=== PATIENT | female | born 1995 | race Caucasian/White ===

== ENCOUNTER 2017-06-25 08:25 | Emergency (ER) | payer MEDICAID ==
[~2017-06-25] VITALS: Ht 165.1 cm; Wt 54.4 kg
[~2017-06-25 08:25] MED LIST: CEPH500C PO; CONCERTA; CYCL5TAB11 PO; HYDR-3812 PO; HYDR25CA5 PO; IBUP-1773 PO; LORAZEPAM; ONDAN4ODT PO
[2017-06-25] MEDS ORDERED: TETRACAINE 0.5% OPHTH SOLN 4 ML BTL (SINGLE DOSE ONLY) ONE (08:28)
[2017-06-25] MEDS ORDERED: BSS 15 ML ONE (08:29)
--- OUTSIDE RECORDS SUMMARY | 2017-06-25 08:30 | XMS REPORT ---
Author NAYA Bautista eClinicalWorks Address Unknown Phone Unavailable Care Team Providers Care Contact Printer Dry Film Name Role Phone NAYA LYMAN CP Unavailable Allergies, Adverse Reactions, Alerts Substance Reaction Event Type Morphine Info Not Available Drug Allergy Problems Problem Type Condition Code Onset Dates Condition Status Assessment Encounter for Depo-Provera contraception Z30.42 Active Assessment Encounter for initial prescription of injectable contraceptive Z30.013 Active Medications Medication Code System Code Instructions Start Date End Date Status Dosage Ortho Micronor [facility] [address]-84 0.35 MG Orally Once a day Aug 23, 2015 1 tablet Procedures Procedure Coding System Code Date Office Visit, Est Pt., Level 3 CPT-4 88319 Nov 16, 2015 DEPO PROVERA (150 MG/ML) CPT-4 J1050 Nov 16, 2015 URINE TEST CPT-4 65218 Nov 16, 2015 THER/PROPH/DIAG INJ, SC/IM CPT-4 19556 Nov 16, 2015 Vital Signs Date/Time: Nov 16, 2015 Temperature 97.6 F Weight 132.3 lbs Height 65 in BMI 22.01 Index Blood Pressure Diastolic 60 mmHg Blood Pressure Systolic 94 mmHg Cardiac Monitoring Heart Rate 88 bpm Results Name Result Date Reference Range Unit Abnormality Flag TEST, URINE (IN HOUSE) ----RESULTS Negative [id number] ----Lot # [id number] ----Control + [id number] ----Exp date [id number] Summary Purpose eClinicalWorks Submission
--- OUTSIDE RECORDS SUMMARY | 2017-06-25 08:30 | XMS REPORT ---
Author ZAYDA Lopez Organization e[employer]Works Address Unknown Phone Unavailable Care Team Providers Care Internet Marketing Specialist Name Role Phone ZAYDA RANDALL CP Unavailable Allergies No Known Allergies Problems No Known Problems Medications No Known Medications Results No Known Results Summary Purpose eClinicalWorks Submission
--- OUTSIDE RECORDS SUMMARY | 2017-06-25 08:31 | XMS REPORT ---
Author Author NAYA LYMAN Organization e[employer] Address Unknown Phone Unavailable Care Team Providers Care Geometry Tutor Name Role Phone NAYA LYMAN CP Unavailable Allergies No Known Allergies Problems Problem Type Condition ICD-9 Code Onset Dates Condition Status Problem Ghdns-jjo-upznw fetus, second trimester 656.53 Active Problem IUGR (intrauterine growth restriction) affecting care of mother 656.50 Active Problem Choroid plexus cysts, , affecting care of mother, antepartum 655.03 Active Problem Supervision of other normal V22.1 Active Problem Insomnia, unspecified 780.52 Active Problem examination or test, positive result V72.42 Active Medications No Known Medications Results No Known Results Summary Purpose eClinicalWorks Submission
--- OUTSIDE RECORDS SUMMARY | 2017-06-25 08:31 | XMS REPORT ---
Author Author MAITE BROWNE Organization eClinical[employer] Address Unknown Phone Unavailable Care Team Providers Care Center Lead Consultant Name Role Phone MAITE BROWNE CP Unavailable Allergies, Adverse Reactions, Alerts Substance Reaction Event Type Morphine Info Not Available Drug Allergy Problems Problem Type Condition Code Onset Dates Condition Status Problem Encounter for screening for malignant neoplasm of cervix Z12.4 Active Problem Screening for STDs (sexually transmitted diseases) Z11.3 Active Problem Encounter for well woman exam with routine gynecological exam Z01.419 Active Assessment Screening for STDs (sexually transmitted diseases) Z11.3 Active Assessment Encounter for well woman exam with routine gynecological exam Z01.419 Active Assessment Encounter for screening for malignant neoplasm of cervix Z12.4 Active Medications Medication Code System Code Instructions Start Date End Date Status Dosage Sprintec 28 [facility] [address]-88 0.25-35 MG-MCG Orally Once a day April 13, 2016 1 tablet Procedures Procedure Coding System Code Date [facility] C[facility]-4 NOBLL Jun 22, 2016 FLORES VAG, DNA, DIR PROBE CPT-4 83557 Jun 22, 2016 SPECIMEN HANDLING CPT-4 23752 Jun 22, 2016 Preventive Care New Pt. Age 18-39 CPT-4 31542 Jun 22, 2016 No Charge CPT-4 27708 Jun 22, 2016 Vital Signs Date/Time: Jun 22, 2016 Cardiac Monitoring Heart Rate 76 bpm Weight 127.7 lbs Height 65 in BMI 21.25 Index Blood Pressure Diastolic 74 mmHg Blood Pressure Systolic 116 mmHg Results No Known Results Summary Purpose eClinicalWorks Submission
--- OUTSIDE RECORDS SUMMARY | 2017-06-25 08:31 | XMS REPORT ---
Author Author NAYA LYMAN Organization e[employer] Address Unknown Phone Unavailable Care Team Providers Care Hydrographic Engineer Name Role Phone NAYA LYMAN CP Unavailable Allergies No Known Allergies Problems Problem Type Condition ICD-9 Code Onset Dates Condition Status Problem Qozzh-zrb-heyxu fetus, second trimester 656.53 Active Problem IUGR [...]
--- OUTSIDE RECORDS SUMMARY | 2017-06-25 08:31 | XMS REPORT ---
Author ZAYDA Lopez Organization eClinicalWorks Address Unknown Phone Unavailable Care Team Providers Care Cover Machine Operator Name Role Phone ZAYDA RANDALL CP Unavailable Allergies No Known Allergies Problems No Known Problems Medications No Known Medications Results No Known Results Summary Purpose eClinicalWorks Submission
--- OUTSIDE RECORDS SUMMARY | 2017-06-25 08:31 | XMS REPORT ---
Author Author MAITE BROWNE Organization [facility] [place] Address [address] [place] [address] Care Team Providers Care Heading Repairer Name Role Phone BROWNEMAITE Sesay Unavailable PROBLEMS Type Condition ICD9-CM Code [id number] Code Onset Dates Condition Status SNOMED Code Problem Screening for STDs (sexually transmitted diseases) Z11.3 Active 055962257 Problem Encounter for well woman exam with routine gynecological exam Z01.419 Active 178708363 Problem Encounter for screening for malignant neoplasm of cervix Z12.4 Active 600018962 Assessment Tobacco abuse Z72.0 Sep, Active 912665972 Problem Anxiety disorder, unspecified F41.9 Active 491791030 Problem Major depressive disorder, single episode, unspecified F32.9 Active 64924665 Problem Tobacco abuse counseling Z71.6 Active 201077929 Problem Oral contraceptive pill surveillance Z30.41 Active 840213748 Problem Attention deficit hyperactivity disorder (ADHD), combined type F90.2 Active 27722901 Problem Tobacco abuse Z72.0 Active 699922238 ALLERGIES Substance Reaction Event Type Date Status Morphine Unknown Drug Allergy Sep, Active SOCIAL HISTORY No smoking Hx information available PLAN OF CARE VITAL SIGNS Height 65 in 2016-09-27 Weight 126 lbs 2016-09-27 Heart Rate 78 bpm 2016-09-27 Respiratory Rate 20 2016-09-27 BMI 20.97 kg/m2 2016-09-27 Blood pressure systolic 112 mmHg 2016-09-27 Blood pressure diastolic 66 mmHg 2016-09-27 MEDICATIONS Medication Instructions Dosage Frequency Start Date End Date Duration Status Sprintec 28 0.25-35 MG-MCG Orally Once a day 1 tablet 24h Apr, 28 day(s) Active Pristiq 50 MG Orally Once a day 1 tablet 24h Active BuSpar 15 MG Orally Twice a day PRN 1 tablet Jul, Active Chantix 1 MG Orally Twice a day take one half tablet day 1-3, then take one tablet daily day 4-7 then one tablet twice daily 12h Sep, Oct, 30 day(s) Active RESULTS No Results PROCEDURES Procedure Date Ordered Related Diagnosis Body Site Office Visit, Est Pt., Level 3 Sep 27, 2016 IMMUNIZATIONS No Known Immunizations
--- OUTSIDE RECORDS SUMMARY | 2017-06-25 08:31 | XMS REPORT ---
Author Author NAYA LYMAN Organization eClinicalWorks Address Unknown Phone Unavailable Care Team Providers Care Automation Control Technician Name Role Phone NAYA LYMAN CP Unavailable Allergies No Known Allergies Problems Problem Type Condition ICD-9 Code Onset Dates Condition Status Assessment IUGR (intrauterine growth restriction) affecting care of mother 656.50 Active Problem Idczy-rre-gzbxa fetus, second trimester 656.53 Active Problem IUGR (intrauterine growth restriction) affecting care of mother 656.50 Active Problem Choroid plexus cysts, , affecting care of mother, antepartum 655.03 Active Problem Supervision of other normal V22.1 Active Assessment Supervision of other normal V22.1 Active Problem Insomnia, unspecified 780.52 Active Problem examination or test, positive result V72.42 Active Medications No Known Medications Procedures Procedure Coding System Code Date Office Visit, Est Pt., Level 2 CPT-4 62875 Jul 07, 2015 NON-STRESS TEST CPT-4 54991 Jul 07, 2015 URINE-NO MICRO CPT-4 56998 Jul 07, 2015 Vital Signs Date/Time: Jul 07, 2015 Temperature 98.0 F Weight 150.4 lbs Height 65 in BMI 25.028 Index Blood Pressure Diastolic 68 mmHg Blood Pressure Systolic 110 mmHg Results Name Result Date Reference Range Unit Abnormality Flag UA OB DIP (IN HOUSE) Summary Purpose eClinicalWorks Submission
--- OUTSIDE RECORDS SUMMARY | 2017-06-25 08:31 | XMS REPORT ---
Author JOSTIN Perry Organization eClinicalWorks Address Unknown Phone Unavailable Care Team Providers Care Sap Technical Developer Name Role Phone JOSTIN QUIROGA CP Unavailable Allergies No Known Allergies Problems Problem Type Condition Code Onset Dates Condition Status Problem Iotvq-obj-jiirn fetus, second trimester 656.53 Active Problem IUGR [...]
--- OUTSIDE RECORDS SUMMARY | 2017-06-25 08:31 | XMS REPORT ---
Author Author NAYA LYMAN [facility] eClinicalWorks Address Unknown Phone Unavailable Care Team Providers Care Metal Bending Machine Operator Name Role Phone NAYA LYMAN CP Unavailable Allergies No Known Allergies Problems No Known Problems Medications No Known Medications Results No Known Results Summary Purpose eClinicalWorks Submission
--- OUTSIDE RECORDS SUMMARY | 2017-06-25 08:31 | XMS REPORT ---
Author Author NAYA LYMAN Organization eClinicalWorks Address Unknown Phone Unavailable Care Team Providers Care Metal Sheet Roller Operator Name Role Phone NAYA LYMAN CP Unavailable Allergies No Known Allergies Problems Problem Type Condition ICD-9 Code Onset Dates Condition Status Problem Bafjy-uwb-icywe fetus, second trimester 656.53 Active Problem IUGR [...]
--- OUTSIDE RECORDS SUMMARY | 2017-06-25 08:31 | XMS REPORT ---
Author Author NAYA LYMAN Organization eClinicalWorks Address Unknown Phone Unavailable Care Team Providers Care Floor Sanding Machine Operator Name Role Phone NAYA LYMAN CP Unavailable Allergies No Known Allergies Problems Problem Type Condition ICD-9 Code Onset Dates Condition Status Problem Lnhks-cga-myamo fetus, second trimester 656.53 Active Problem IUGR [...]
--- OUTSIDE RECORDS SUMMARY | 2017-06-25 08:31 | XMS REPORT ---
Author Author NAYA LYMAN Organization eClinicalWorks Address Unknown Phone Unavailable Care Team Providers Care Tow Motor Operator Name Role Phone NAYA LYMAN CP Unavailable Allergies No Known Allergies Problems Problem Type Condition ICD-9 Code Onset Dates Condition Status Problem Dmdgb-lrs-ioqep fetus, second trimester 656.53 Active Problem IUGR [...]
--- OUTSIDE RECORDS SUMMARY | 2017-06-25 08:31 | XMS REPORT ---
Author Author NAYA LYMAN [facility] eClinicalWorks Address Unknown Phone Unavailable Care Team Providers Care Thiokol Operator Name Role Phone NAYA LYMAN CP Unavailable Allergies No Known Allergies Problems No Known Problems Medications No Known Medications Results No Known Results Summary Purpose eClinicalWorks Submission
--- OUTSIDE RECORDS SUMMARY | 2017-06-25 08:31 | XMS REPORT ---
Author Author NAYA LYMAN Organization eClinicalWorks Address Unknown Phone Unavailable Care Team Providers Care Die Sinking Machine Operator Name Role Phone NAYA LYMAN CP Unavailable Allergies No Known Allergies Problems Problem Type Condition ICD-9 Code Onset Dates Condition Status Problem Wvybq-ayd-gpaal fetus, second trimester 656.53 Active Problem IUGR [...]
--- OUTSIDE RECORDS SUMMARY | 2017-06-25 08:31 | XMS REPORT ---
Author Author NAYA LYMAN Organization eClinicalWorks Address Unknown Phone Unavailable Care Team Providers Care Hob Machine Operator Name Role Phone NAYA LYMAN CP Unavailable Allergies No Known Allergies Problems Problem Type Condition ICD-9 Code Onset Dates Condition Status Assessment IUGR (intrauterine growth restriction) affecting care of mother 656.50 Active Problem Nnwip-rkq-giuwq fetus, second trimester 656.53 Active Problem IUGR [...] Medications Procedures Procedure Coding System Code Date NON-STRESS TEST CPT-4 97895 Jun 30, 2015 Office Visit, Est Pt., Level 2 CPT-4 45637 Jun 30, 2015 URINE-NO MICRO CPT-4 06795 Jun 30, 2015 Vital Signs Date/Time: Jun 30, 2015 Temperature 97.1 F Weight 147.1 lbs Height 65 in BMI 24.479 Index Blood Pressure Diastolic 78 mmHg Blood Pressure Systolic 112 mmHg Cardiac Monitoring Heart Rate 82 bpm Results Name Result Date Reference Range Unit Abnormality Flag UA OB DIP (IN HOUSE) NON-STRESS TEST Summary Purpose eClinicalWorks Submission
[2017-06-25] MEDS ORDERED: NS IV 1000 ML 1,000 ML ONE (08:32)
--- OUTSIDE RECORDS SUMMARY | 2017-06-25 08:32 | XMS REPORT ---
Author Author MAITE BROWNE Organization eClinicalWorks Address Unknown Phone Unavailable Care Team Providers Care Prosthetist Name Role Phone MAITE BROWNE CP Unavailable Allergies, Adverse Reactions, Alerts Substance Reaction Event Type Morphine Info Not Available Drug Allergy Problems Problem Type Condition Code Onset Dates Condition Status Problem Encounter for screening for malignant neoplasm of cervix Z12.4 Active Problem Screening for STDs (sexually transmitted diseases) Z11.3 Active Problem Encounter for well woman exam with routine gynecological exam Z01.419 Active Assessment Routine health maintenance Z00.00 Active Assessment Anxiety F41.9 Active Medications Medication Code System Code Instructions Start Date End Date Status Dosage BuPROPion HCl (SR) [facility] [address]-02 100 MG Orally Once a day 1 tablet Sertraline HCl [facility] [address]-70 100 MG Orally Once a day 1 tablet BuSpar NDC 0 15 MG Orally Twice a day PRN Aug 09, 2016 1 tablet Sprintec 28 [facility] [address]-07 0.25-35 MG-MCG Orally Once a day April 13, 2016 1 tablet Procedures Procedure Coding System Code Date [facility] CPT-4 NOBLL Aug 09, 2016 Office Visit, Est Pt., Level 3 CPT-4 50247 Aug 09, 2016 GLYCATED HEMOGLOBIN TEST CPT-4 48514 Aug 09, 2016 VENIPAMARA, ROUTINE* CPT-4 01326 Aug 09, 2016 Vital Signs Date/Time: Aug 09, 2016 Cardiac Monitoring Heart Rate 80 bpm Weight 124.2 lbs Height 65 in BMI 20.67 Index Blood Pressure Diastolic 62 mmHg Blood Pressure Systolic 104 mmHg Results Name Result Date Reference Range Unit Abnormality Flag A1C ----Hemoglobin A1c 5.4 [id number] 4.8-5.6 % CBC ----Basos 0 07210075 % ----MCV 88 12839286 79-97 fL ----Hematocrit 41.8 55315224 34.0-46.6 % ----Eos 2 40381196 % ----MCHC 34.4 47576062 31.5-35.7 g/dL ----Monocytes 7 31760822 % ----MCH 30.2 08202499 26.6-33.0 pg ----Lymphs 32 78097271 % ----Eos (Absolute) 0.1 [id number] 0.0-0.4 x10E3/uL ----WBC 7.0 [id number] 3.4-10.8 x10E3/uL ----Monocytes(Absolute) 0.5 [id number] 0.1-0.9 x10E3/uL ----Lymphs (Absolute) 2.2 19452622 0.7-3.1 x10E3/uL ----Hemoglobin 14.4 60360765 11.1-15.9 g/dL ----Neutrophils (Absolute) 4.1 24443419 1.4-7.0 x10E3/uL ----RBC 4.77 [id number] 3.77-5.28 x10E6/uL ----Immature Grans (Abs) 0.0 10791836 0.0-0.1 x10E3/uL ----Immature Granulocytes 0 06008080 % ----Neutrophils 59 07542946 % ----Baso (Absolute) 0.0 [id number] 0.0-0.2 x10E3/uL ----RDW 12.7 79867018 12.3-15.4 % ----Platelets 304 28686102 150-379 x10E3/uL ROUTINE VENIPUNCTURE THYROID ANALYZER ----TSH 1.450 [id number] 0.450-4.500 uIU/mL LIPID PANEL ----LDL Cholesterol Calc 139 82196169 0-99 mg/dL H ----VLDL Cholesterol Hung 28 70078337 5-40 mg/dL ----HDL Cholesterol 48 81879155 >39 mg/dL ----Triglycerides 138 76900521 0-149 mg/dL ----Cholesterol, Total 215 64121154 100-199 mg/dL H CMP ----Creatinine, Serum 0.68 63087751 0.57-1.00 mg/dL ----BUN 7 20075620 6-20 mg/dL ----eGFR If Africn Am 145 33794109 >59 mL/min/1.73 ----eGFR If NonAfricn Am 125 71111860 >59 mL/min/1.73 ----Sodium, Serum 141 69692948 134-144 mmol/L ----BUN/Creatinine Ratio 10 20160809 8-20 ----Chloride, Serum 101 19890640 97-108 mmol/L ----Potassium, Serum 4.6 99063808 3.5-5.2 mmol/L ----Carbon Dioxide, Total 23 78421886 18-29 mmol/L ----Protein, Total, Serum 8.0 38244203 6.0-8.5 g/dL ----Calcium, Serum 10.2 91682935 8.7-10.2 mg/dL ----Globulin, Total 3.1 66143320 1.5-4.5 g/dL ----Albumin, Serum 4.9 88603755 3.5-5.5 g/dL ----Bilirubin, Total 0.3 15008554 0.0-1.2 mg/dL ----Glucose, Serum 71 26977951 65-99 mg/dL ----A/G Ratio 1.6 65529393 1.1-2.5 ----ALT (SGPT) 19 20160809 0-32 IU/L ----Alkaline Phosphatase, S 77 08867681 39-117 IU/L ----AST (SGOT) 20 [id number] 0-40 IU/L Summary Purpose eClinicalWorks Submission
--- OUTSIDE RECORDS SUMMARY | 2017-06-25 08:32 | XMS REPORT ---
Author Author NAYA LYMAN [facility] eClinicalWorks Address Unknown Phone Unavailable Care Team Providers Care Staff Nurse Midwife Name Role Phone NAYA LYMAN Unavailable Allergies No Known Allergies Problems Problem Type Condition Code Onset Dates Condition Status Assessment Routine follow-up Z39.2 Active Medications Medication Code System Code Instructions Start Date End Date Status Dosage Ortho Micronor [facility] [address]-58 0.35 MG Orally Once a day Aug 23, 2015 1 tablet Procedures Procedure Coding System Code Date Office Visit, Est Pt., Level 3 CPT-4 10592 Aug 23, 2015 Vital Signs Date/Time: Aug 23, 2015 Temperature 97.9 F Weight 133.3 lbs Height 65 in BMI 22.18 Index Blood Pressure Diastolic 62 mmHg Blood Pressure Systolic 110 mmHg Cardiac Monitoring Heart Rate 96 bpm Results No Known Results Summary Purpose eClinicalWorks Submission
[2017-06-25] MEDS ORDERED: TETRACAINE 0.5% OPHTH SOLN 4 ML BTL (SINGLE DOSE ONLY) OP ONE (08:45)
[2017-06-25] MEDS ORDERED: FLUORESCEIN (FLUOR-I-STRIPS) 1 MG STRP OU ONE (08:45)
--- NOTE | 2017-06-25 08:48 | ED EENT ---
History of Present Illness General Stated Complaint: CLEANING CHEMICALS IN HER EYES Source: patient Exam Limitations: no limitations History of Present Illness Time seen by provider: 08:25 Initial Comments Here with significant left thigh pain after getting longer soap in her left eye just prior to arrival this morning. She tried to flush it out quickly but it did not help. She had a contact and she quickly remove that and then continue the flushing. Pain was quite severe so she came to the ER. She states that it hurts mostly on the top and she cannot get the soap out. Denies other injury. Tetanus is up-to-date. Timing/Duration: abrupt Severity: moderate, severe Location: eye (L) Prearrival Treatment: flushing eyes Associated Symptoms: No facial pain/swelling, No fever Allergies and Home Medications Allergies Coded Allergies: morphine (Verified Allergy, Mild, SOA, 04/22/12) Home Medications Varenicline Tartrate 1 Mg Tablet, 1 MG PO DAILY, (Reported) Review of Systems Constitutional: see HPI, No chills, No fever Eyes: See HPI, Inflammation, Pain Respiratory: no symptoms reported Cardiovascular: no symptoms reported Skin: no symptoms reported Past Kelzjys-Wuqomn-Ucqkqe Hx Patient Social History Alcohol Use: Occasionally Uses Recreational Drug Use: No Smoking Status: Former Smoker Former Smoker/When Quit: Feb 09, 2015 Immunizations Up To Date Tetanus Booster (TDap): Less than 5yrs PED Vaccines UTD: Yes Surgeries HX Surgeries: Yes (wisdom teeth ) Surgeries: Tonsillectomy Respiratory Hx Respiratory Disorders: No Cardiovascular Hx Cardiac Disorders: No Neurological Hx Neurological Disorders: No Reproductive System Hx Reproductive Disorders: No Sexually Transmitted Disease: No HIV/AIDS: No Genitourinary Hx Genitourinary Disorders: No Gastrointestinal Hx Gastrointestinal Disorders: No Musculoskeletal Hx Musculoskeletal Disorders: No Endocrine Hx Endocrine Disorders: No HEENT HX ENT Disorders: No Cancer Hx Cancer: No Psychosocial Hx Psychiatric Problems: No Integumentary HX Skin/Integumentary Disorder: No Blood Transfusions Hx Blood Disorders: No Adverse Reaction to a Blood Tr: No Reviewed Nursing Assessment Reviewed/Agree w Nursing PMH: Yes Family Medical History Significant Family History: No Pertinent Family Hx Family Medial History: Chrons Diabetes mellitus 19 FATHER FH: Crohn's disease G8 BROTHER Hypertension 19 FATHER Psychosocial problem 19 FATHER (schizophrenia ) 19 MOTHER (manic depressive ) Physical Exam Vital Signs Vital Sign - Last 12Hours 06/25/17 08:45 Temp 97.0 Pulse 81 Resp 20 B/P (MAP) 120/75 Pulse Ox 99 O2 Delivery Room Air General Appearance: WD/WN, no apparent distress Eyes: right eye normal inspection, left eye conjunctival inflammation, left eye other (ocular evaluation after lidocaine and fluorescein shows no corneal abrasions.), bilateral eye PERRL Cardiovascular: regular rate, rhythm, no murmur Respiratory: lungs clear, normal breath sounds Gastrointestinal: non tender, soft Neurologic/Psychiatric: alert, oriented x 3 Skin: normal color, warm/dry Progress/Results/Core Measures Results/Orders My Orders Orders - ALEE ALMONTE MD Fluorescein Strips (Cyarz-X-Ssrspl) (06/25/17 08:45) Tetracaine 0.5% Ophth Randi Sdv (Tetracai (06/25/17 08:45) Tetracaine 0.5% Ophth Randi Sdv (Tetracai (06/25/17 08:28) Balanced Salt Irrigation Soln (Bss Irrig (06/25/17 08:29) Ns Iv 1000 Ml (Sodium Chloride 0.9%) (06/25/17 08:32) Medications Given in ED Current Medications Medications Dose Ordered Sig/Sunil Route Start Time Stop Time Status Last Admin Dose Admin Fluorescein Sodium 1 mg ONCE ONCE OU 06/25/17 08:45 06/25/17 08:46 DC 06/25/17 08:59 1 MG Sodium Chloride 1,000 ml @ ud STK-MED ONCE .ROUTE 06/25/17 08:32 06/25/17 08:39 DC 06/25/17 08:55 1,000 MLS/HR Tetracaine HCl 1 OR 2 DROPS INTO AFFEC... ONCE ONCE OP 06/25/17 08:45 06/25/17 08:46 DC 06/25/17 08:59 4 ML Vital Signs/I&O Vital Sign - Last 12Hours 06/25/17 08:45 Temp 97.0 Pulse 81 Resp 20 B/P (MAP) 120/75 Pulse Ox 99 O2 Delivery Room Air Progress Note : Progress Note Seen and evaluated. Initiated flushing of the left eye with normal saline on arrival. This greatly reduced her pain and symptoms. Fluorescein staining after tetracaine drops shows no abrasions on [place] lamp exam. We will flush left with 1 L normal saline via Wesly lens. After 500 mL, patient was feeling much better and would like to discontinue last. This is reasonable as she is very had 250 mL via bottle and 500 mL via Wesly lens for flushing of the eye. Improved afterwards. Discharged home with return precautions. Patient verbalize understanding instructions and agreement with plan. Departure Impression Impression: Primary Impression: Chemical conjunctivitis of left eye Disposition: 01 HOME, SELF-CARE Condition: Improved Departure-Patient Inst. Decision time for Depature: 08:46 Referrals: NAYA LYMAN MD (PCP) Primary Care Physician [facility] (Family) Primary Care Physician JASON DUMONT OD Patient Instructions: Chemical Eye Injury (DC) Add. Discharge Instructions: Follow-up with your eye doctor in the next 24 hours or follow up with Dr. Dumont [facility] for recheck and further evaluation. Return for worse pain, fever, vision problems or other concerns as needed. Do not use contact in that eye for the next few days. ALEE ALMONTE MD Jun 25, 2017 08:48
[2017-06-25] MEDS ORDERED: VARE1TAB22 PO (08:54)
[2017-06-25 09:39] VITALS: BP 120/75
== END 2017-06-25 09:39 | disposition home or self-care (01) ==
LOC: EDUNIT# 08:25 → ER 08:27
DX: H10.212 Acute toxic conjunctivitis, left eye (principal); Z87.891 Personal history of nicotine dependence
CPT/HCPCS: 96360; 99283

== ENCOUNTER 2018-10-08 09:27 | Emergency (ER) | payer MEDICAID ==
[~2018-10-08] VITALS: Ht 165.1 cm; Wt 54.4 kg
[~2018-10-08 09:27] MED LIST changes: +ACHD5005 PO; -HYDR-3812 PO; +VARE1TAB22 PO
[2018-10-08] MEDS ORDERED: LACTATED RINGERS 1,000 ML IV ONE (09:38)
[2018-10-08] MEDS ORDERED: diphenhydrAMINE 25 MG TAB (BENADRYL) PO ONE (09:45)
[2018-10-08] MEDS ORDERED: ONDANSETRON 4 MG/2 ML (SDV) Z0FRAN IVP ONE (09:45)
[2018-10-08] MEDS ORDERED: KETOROLAC 30 MG/ML VIAL IVP ONE (09:45)
[2018-10-08] MEDS ORDERED: DEXAMETHASONE 4 MG/ML SDV (DECADRON) IV ONE (09:45)
[2018-10-08] MEDS ORDERED: PROCHLORPERAZINE 10 MG/2ML INJ (COMPAZINE) IV ONE (09:45)
[2018-10-08] MEDS ORDERED: ACETAMINOPHEN 500 MG TAB (TYLENOL) PO ONE (09:45)
--- NOTE | 2018-10-08 09:46 | ED Headache ---
General Stated Complaint: N/V;MIGRAINE Source: patient, other Exam Limitations: no limitations History of Present Illness Date Seen by Provider: Oct 08, 2018 Time Seen by Provider: 09:35 Initial Comments Patient presents to ER by private conveyance with chief complaint she's had a headache nausea vomiting since about 7:00 this morning. She has a history of migraine headache similar to this she's not had one in 3 years. She does not take anything to prevent them or to abort them. She does not take any medicines nor have any significant medical problems. Last menstrual period was 6 days ago. She describes it as a global ring around her head stabbing sensation with nausea vomiting of bilious contents. No diarrhea. The only thing different is recently she started an antibiotic for UTI. Allergies and Home Medications Allergies Coded Allergies: morphine (Verified Allergy, Mild, SOA, 04/22/12) Home Medications Varenicline Tartrate 1 Mg Tablet, 1 MG PO DAILY, (Reported) Patient Home Medication List Home Medication List Reviewed: Yes Review of Systems Review of Systems Constitutional: No chills, No diaphoresis, No fever Eyes: Denies Blindness, Denies Blurred Vision; Photophobia Ears, Nose, Mouth, Throat: denies ear pain, denies ear discharge Respiratory: No cough, No short of breath Cardiovascular: No chest pain, No edema Gastrointestinal: No abdominal pain, No constipation, No diarrhea; nausea, vomiting Genitourinary: No discharge, No dysuria : No LMP: Oct 02, 2018 Musculoskeletal: No back pain, No joint pain Past Veiruaz-Jllsne-Houpax Hx Patient Social History Alcohol Use: Denies Use Alcohol Beverage of Choice: Cheap Liquor Recreational Drug Use: No Smoking Status: Former Smoker Type Used: Cigarettes Former Smoker, Quit: Jun 18, 2017 Recent Hopitalizations: No Immunizations Up To Date Tetanus Booster (TDap): Less than 5yrs PED Vaccines UTD: Yes Seasonal Allergies Seasonal Allergies: Yes Past Medical History Surgeries: Yes (wisdom teeth ) Tonsillectomy Respiratory: No Cardiac: No Neurological: No Reproductive Disorders: No Sexually Transmitted Disease: No HIV/AIDS: No Genitourinary: No Gastrointestinal: No Musculoskeletal: No Endocrine: No Cancer: No Psychosocial: No Integumentary: No Blood Disorders: No Adverse Reaction/Blood Tranf: No Family Medical History Chrons Diabetes mellitus 19 FATHER FH: Crohn's disease G8 BROTHER Hypertension 19 FATHER Psychosocial problem 19 FATHER (schizophrenia ) 19 MOTHER (manic depressive ) No Pertinent Family Hx Physical Exam Vital Signs Vital Signs - First Documented 10/08/18 09:32 Temp 96.1 Pulse 93 Resp 18 B/P (MAP) 117/78 (91) Pulse Ox 100 O2 Delivery Room Air Capillary Refill : Height, Weight, BMI Height: 5'5.00" Weight: 120lbs. oz. 54.127123wi; 25.62 BMI Method:Stated General Appearance: WD/WN, moderate distress HEENT: normal ENT inspection, pharynx normal Neck: non-tender, full range of motion Cardiovascular: normal peripheral pulses, regular rate, rhythm Respiratory: no respiratory distress, no accessory muscle use Gastrointestinal: normal bowel sounds, non tender Psychiatric: alert, oriented x 3 Crainal Nerves: normal hearing, normal speech, PERRL Coordination/Gait: normal gait Motor/Sensory: no motor deficit, no sensory deficit Skin: normal color, warm/dry Progress/Results/Core Measures Results/Orders My Orders Orders - DEYA MERCADO Saline Lock/Iv-Start (10/08/18 09:38) Lactated Ringers (Lr 1000 Ml Iv Solution (10/08/18 09:38) Ketorolac Injection (Toradol Injection) (10/08/18 09:45) Ondansetron Injection (Zofran Injectio (10/08/18 09:45) Prochlorperazine Injection (Compazine In (10/08/18 09:45) Dexamethasone Injection (Decadron Inject (10/08/18 09:45) Diphenhydramine Tablet (Benadryl Tablet) (10/08/18 09:45) Acetaminophen Tablet (Tylenol Tablet) (10/08/18 09:45) Medications Given in ED Current Medications Medications Dose Ordered Sig/Sunil Route Start Time Stop Time Status Last Admin Dose Admin Dexamethasone Sodium Phosphate 4 mg ONCE ONCE IV 10/08/18 09:45 10/08/18 09:46 DC 10/08/18 09:54 4 MG Ketorolac Tromethamine 30 mg ONCE ONCE IVP 10/08/18 09:45 10/08/18 09:46 DC 10/08/18 09:53 30 MG Lactated Ringer's 1,000 ml @ 0 mls/hr Q0M ONCE IV 10/08/18 09:38 10/08/18 09:40 DC 10/08/18 09:50 1,000 MLS/HR Ondansetron HCl 4 mg ONCE ONCE IVP 10/08/18 09:45 10/08/18 09:46 DC 10/08/18 09:52 4 MG Prochlorperazine Edisylate 10 mg ONCE ONCE IV 10/08/18 09:45 10/08/18 09:46 DC 10/08/18 09:50 10 MG Vital Signs/I&O 10/08/18 09:32 Temp 96.1 Pulse 93 Resp 18 B/P (MAP) 117/78 (91) Pulse Ox 100 O2 Delivery Room Air Progress Progress Note #1: Time: 09:44 Progress Note Zofran, Compazine, Toradol, Decadron. We'll give her a liter of LR. After she's got her nausea under control we can give her some Benadryl and Tylenol as well. Progress Note #2: Time: 10:44 Progress Note Patient's feeling much better now has gotten her fluids and wants to go home. Departure Impression Primary Impression: Migraine headache without aura Qualified Codes: G43.009 - Migraine without aura, not intractable, without status migrainosus Disposition: 01 HOME, SELF-CARE Condition: Improved Departure-Patient Inst. Decision time for Depature: 10:44 Referrals: NAYA LYMAN MD (PCP) Primary Care Physician [facility] (Family) Primary Care Physician Patient Instructions: Migraine Headache (DC) Add. Discharge Instructions: Get some sleep. Use Tylenol 1000 mg every 8 hours in addition to ibuprofen 800 mg every 8 hours. Use Zofran 1 tablet every 6 hours as needed for nausea. DEYA MERCADO Oct 08, 2018 09:46
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
--- OUTSIDE RECORDS SUMMARY | 2018-10-08 10:02 | XMS REPORT ---
Author Author MAITE BROWNE Organization [facility] Address [address] [place] [address] Care Team Providers Care Laboratory Inspector Name Role Phone BROWNECRISSY SesayELE Unavailable PROBLEMS Type Condition ICD9-CM Code FSX22-WS Code Onset Dates Condition Status SNOMED Code Problem Screening for STDs (sexually transmitted diseases) Z11.3 Active 582896749 Problem Oral contraceptive pill surveillance Z30.41 Active 529120956 Problem Encounter for well woman exam with routine gynecological exam Z01.419 Active 871248040 Problem Encounter for screening for malignant neoplasm of cervix Z12.4 Active 569732475 Problem Seasonal allergic rhinitis, unspecified allergic rhinitis trigger J30.2 Active 550083568 Problem Major depressive disorder, single episode, unspecified F32.9 Active 65889216 Problem Tobacco abuse Z72.0 Active 581425687 Problem Attention deficit hyperactivity disorder (ADHD), combined type F90.2 Active 84070654 Problem Anxiety disorder, unspecified F41.9 Active 855239860 Problem Tobacco abuse counseling Z71.6 Active 215364591 ALLERGIES No Information SOCIAL HISTORY Never Assessed PLAN OF CARE VITAL SIGNS MEDICATIONS Medication Instructions Dosage Frequency Start Date End Date Duration Status Chantix 1 MG Orally Twice a day 1 tablet 12h 17 Sep, 2016 15 Jan, 2017 30 days Active RESULTS No Results PROCEDURES No Known procedures IMMUNIZATIONS No Known Immunizations MEDICAL (GENERAL) HISTORY Type Description Date Medical History ADHD Medical History Anxiety Disorder Surgical History tonsillectomy - age 13 Hospitalization History childbirth
--- OUTSIDE RECORDS SUMMARY | 2018-10-08 10:03 | XMS REPORT | Continuity of Care Document ---
Author Author [facility] Address Unknown Phone Unavailable Allergies Active Description Code Type Severity Reaction Onset Reported/Identified Relationship to Patient Clinical Status Yes MORPHINE [id number] DRUG N/A N/A Yes morphine [id number] Drug Allergy Mild SOA 04/22/2012 Yes Coconut Drug Allergy N/A N/A 06/12/2012 Yes morphine Drug Allergy N/A N/A 06/12/2012 Yes Pineapple Drug Allergy N/A N/A 06/12/2012 Medications There is no data. Problems Date Dx Coded Attending Type Code Diagnosis Diagnosed By 04/22/2012 Ot 300.00 ANXIETY STATE NOS 04/22/2012 Ot 787.03 VOMITING ALONE 06/12/2012 MONICATRUDY Denson APRNIDI A 723.1 CERVICALGIA 06/12/2012 MONIAC MYERS KEHINDE A 780.52 INSOMNIA UNSPECIFIED 06/12/2012 RANDALL DO ZAYDA K 723.1 CERVICALGIA 06/12/2012 IRVIN RANDALL DOA K 780.52 INSOMNIA UNSPECIFIED 06/12/2012 IRVIN RANDALL DOA K 723.1 CERVICALGIA 06/12/2012 IRVIN RANDALL DOA K 780.52 INSOMNIA UNSPECIFIED 06/12/2012 MONICAJaniya MYERS KEHINDE A 723.1 CERVICALGIA 06/12/2012 MONICAJaniya MYERS KEHINDE A 780.52 INSOMNIA UNSPECIFIED 06/12/2012 MONICA L[place]IS, KEHINDE A 723.1 CERVICALGIA 06/12/2012 MONICA APRN, KEHINDE A 780.52 INSOMNIA UNSPECIFIED 06/12/2012 NAYA LYMAN MD 723.1 CERVICALGIA 06/12/2012 NAYA LYMAN MD 780.52 INSOMNIA UNSPECIFIED 06/12/2012 NAYA LYMAN MD 723.1 CERVICALGIA 06/12/2012 NAYA LYMAN MD 780.52 INSOMNIA UNSPECIFIED 08/11/2012 Ot 346.90 MIGRAINE UNSPECIFIED W/O INTRACT MGRN W/ 08/11/2012 Ot 784.0 HEADACHE 01/26/2014 KEHINDE ANDERSON APRN A V74.5 STD SCREEN 01/26/2014 ZAYDA RANDALL DO V74.5 STD SCREEN 01/26/2014 ZAYDA RANDALL DO K V74.5 STD SCREEN 01/26/2014 KEHINDE ANDERSON APRN A V74.5 STD SCREEN 01/26/2014 KEHINDE ANDERSON APRN A V74.5 STD SCREEN 01/26/2014 NAYA LYMAN MD V74.5 STD SCREEN 01/26/2014 NAYA LYMAN MD V74.5 STD SCREEN 04/15/2014 ZAYDA RANDALL DO 625.8 OTHER SPECIFIED SYMPTOMS ASSOCIATED WITH FEMALE GENITAL ORGANS 04/15/2014 ZAYDA RANDALL DO 625.8 OTHER SPECIFIED SYMPTOMS ASSOCIATED WITH FEMALE GENITAL ORGANS 04/15/2014 KEHINDE ANDERSON APRN 625.8 OTHER SPECIFIED SYMPTOMS ASSOCIATED WITH FEMALE GENITAL ORGANS 04/15/2014 KEHINDE ANDERSON APRN A 625.8 OTHER SPECIFIED SYMPTOMS ASSOCIATED WITH FEMALE GENITAL ORGANS 04/15/2014 NAYA LYMAN MD 625.8 OTHER SPECIFIED SYMPTOMS ASSOCIATED WITH FEMALE GENITAL ORGANS 04/15/2014 NAYA LYMAN MD 625.8 OTHER SPECIFIED SYMPTOMS ASSOCIATED WITH FEMALE GENITAL ORGANS 11/17/2014 ZAYDA RANDALL DO V72.42 EXAMINATION OR TEST POSITIVE RESULT 11/17/2014 KEHINDE ANDERSON APRN V72.42 EXAMINATION OR TEST POSITIVE RESULT 11/17/2014 KEHINDE ANDERSON APRN V72.42 EXAMINATION OR TEST POSITIVE RESULT 11/17/2014 NAYA LYMAN MD V72.42 EXAMINATION OR TEST POSITIVE RESULT 11/17/2014 NAYA LYMAN MD V72.42 EXAMINATION OR TEST POSITIVE RESULT 11/19/2014 Ot 723.1 11/19/2014 Ot 737.30 11/19/2014 Ot 780.52 11/19/2014 Ot 723.1 11/19/2014 KOLBY WAYNE APRN Ot 640.03 THREATEN ABORT-ANTEPART 11/19/2014 KOLBY WAYNE APRN Ot 640.93 HEM EARLY PREG-ANTEPART 11/19/2014 Ot 723.1 11/19/2014 Ot 737.30 11/19/2014 Ot 780.52 11/19/2014 Ot 723.1 11/29/2014 MONICATRUDY Denson APRNIDI A V22.1 , NORMAL OTHER 11/29/2014 MONICATRUDY Denson APRNIDI A V22.1 , NORMAL OTHER 11/29/2014 ESMER JOSÉ, NAYA Denson V22.1 , NORMAL OTHER 11/29/2014 NAYA LYMAN MD V22.1 , NORMAL OTHER 12/09/2014 KEHINDE ANDERSON A [employer]ANT OPERATOR Ot V22.1 12/23/2014 KEHINDE ANDERSON A AUXILIARY PLANT OPERATOR Ot V22.1 12/31/2014 MONICA AUXILIARY PLANT OPERATORKEHINDE A 708.1 IDIOPATHIC URTICARIA 12/31/2014 NAYA LYMAN MD 708.1 IDIOPATHIC URTICARIA 12/31/2014 NAYA LYMAN MD 708.1 IDIOPATHIC URTICARIA 02/23/2015 Ot 723.1 02/23/2015 Ot 737.30 02/23/2015 Ot 780.52 02/23/2015 Ot 723.1 02/23/2015 KEHINDE ANDERSON AUXILIARY PLANT OPERATOR Ot V22.1 03/16/2015 NAYA LYMAN MD Ot V28.81 07/12/2015 NAYA LYMAN MD Ot 656.51 POOR GROWTH-DELIV 07/12/2015 NAYA LYMAN MD Ot 664.81 OB PERINEAL TRAU NEC-DEL 07/12/2015 NAYA LYMAN MD Ot 665.41 HIGH VAGINAL LACER-DELIV 07/12/2015 NAYA LYMAN MD Ot V27.0 DELIVER-SINGLE LIVEBORN 06/25/2017 ALEE ALMONTE MD Ot H10.212 ACUTE TOXIC CONJUNCTIVITIS, LEFT EYE 06/25/2017 ALEE ALMONTE MD Ot H57.12 OCULAR PAIN, LEFT EYE 06/25/2017 ALEE ALMONTE MD Ot Z87.891 PERSONAL HISTORY OF NICOTINE DEPENDENCE 06/27/2017 ALEE ALMONTE MD Ot H10.212 ACUTE TOXIC CONJUNCTIVITIS, LEFT EYE 06/27/2017 ALEE ALMONTE MD Ot H57.12 OCULAR PAIN, LEFT EYE 06/27/2017 SUZY JOSÉ, ALEE Adler Ot Z87.891 PERSONAL HISTORY OF NICOTINE DEPENDENCE 07/16/2017 Ot 723.1 CERVICALGIA 07/16/2017 Ot 737.30 IDIOPATHIC SCOLIOSIS 07/16/2017 Ot 780.52 INSOMNIA, UNSPECIFIED 07/16/2017 Ot 723.1 CERVICALGIA 07/16/2017 MONICA, KEHINDEYOLANDA Loja APRN Ot V22.1 SUPERVIS OT NORMAL PREG 07/16/2017 ESMER JOSÉ, NAYA Denson Ot V28.81 ENCOUNTER FOR ANATOMIC SURVEY Procedures Code [place] [address] TEST, URINE (IN- HOUSE) 01/26/2014 19888 GC/CHLAM URINE (STATE) 01/26/2014 38886 ROUTINE VENIPUNCTURE 04/15/2014 72609 TRICHOMONAS (IN-HOUSE) 04/15/2014 39672 CULTURE UROGENITAL 04/18/2014 03149 SYPHILLIS-STATE LAB 04/19/2014 09150 HIV (STATE LAB) 04/19/2014 69195 GC/CHLAM PROBE (STATE) 04/19/2014 HERPSM1,2 HERPES SIMPLEX 1 AND 2, IGM, IGG 04/19/2014 56409 TEST, URINE (IN- HOUSE) 11/17/2014 94030 US OB - COMPLETE >14 WEEKS 02/09/2015 71473 UA OB DIP 02/09/2015 21058 ROUTINE VENIPUNCTURE 02/25/2015 TETRA TETRA SCREEN 02/28/2015 75.69 REPAIR OB LACERATION NEC 07/11/2015 Results Test Result Range CBC With Differential/Platelet - 08/09/16 10:49 WBC 7.0 x10E3/uL 3.4-10.8 RBC 4.77 x10E6/uL 3.77-5.28 Hemoglobin 14.4 g/dL 11.1-15.9 Hematocrit 41.8 % 34.0-46.6 MCV 88 fL 79-97 MCH 30.2 pg 26.6-33.0 MCHC 34.4 g/dL 31.5-35.7 RDW 12.7 % 12.3-15.4 Platelets 304 x10E3/uL 150-379 Neutrophils 59 % Lymphs 32 % Monocytes 7 % Eos 2 % Basos 0 % Neutrophils (Absolute) 4.1 x10E3/uL 1.4-7.0 Lymphs (Absolute) 2.2 x10E3/uL 0.7-3.1 Monocytes(Absolute) 0.5 x10E3/uL 0.1-0.9 Eos (Absolute) 0.1 x10E3/uL 0.0-0.4 Baso (Absolute) 0.0 x10E3/uL 0.0-0.2 Immature Granulocytes 0 % Immature Grans (Abs) 0.0 x10E3/uL 0.0-0.1 Comp. Metabolic Panel (14) - 08/09/16 10:49 Glucose, Serum 71 mg/dL 65-99 BUN 7 mg/dL 6-20 Creatinine, Serum 0.68 mg/dL 0.57-1.00 eGFR If NonAfricn Am 125 mL/min/1.73 >59 eGFR If Africn Am 145 mL/min/1.73 >59 BUN/Creatinine Ratio 10 8-20 Sodium, Serum 141 mmol/L 134-144 Potassium, Serum 4.6 mmol/L 3.5-5.2 Chloride, Serum 101 mmol/L 97-108 Carbon Dioxide, Total 23 mmol/L 18-29 Calcium, Serum 10.2 mg/dL 8.7-10.2 Protein, Total, Serum 8.0 g/dL 6.0-8.5 Albumin, Serum 4.9 g/dL 3.5-5.5 Globulin, Total 3.1 g/dL 1.5-4.5 A/G Ratio 1.6 1.1-2.5 Bilirubin, Total 0.3 mg/dL 0.0-1.2 Alkaline Phosphatase, S 77 IU/L 39-117 AST (SGOT) 20 IU/L 0-40 ALT (SGPT) 19 IU/L 0-32 Lipid Panel - 08/09/16 10:49 Cholesterol, Total 215 mg/dL 100-199 Triglycerides 138 mg/dL 0-149 HDL Cholesterol 48 mg/dL >39 VLDL Cholesterol Hung 28 mg/dL 5-40 LDL Cholesterol Calc 139 mg/dL 0-99 Hemoglobin A1c - 08/09/16 10:49 Hemoglobin A1c 5.4 % 4.8-5.6 Thyroid [place] Profile - 08/09/16 10:49 TSH 1.450 uIU/mL 0.450-4.500 Alk Phos Isoenzyme - 09/09/18 09:50 Alkaline Phosphatase, S 90 IU/L 39-117 Liver Fraction: 42 % 18-85 Bone Fraction: 58 % 14-68 Intestinal Frac.: 0 % 0-18 CBC - 08/08/18 14:29 WHITE BLOOD CELL COUNT 8.8 Thousand/uL 3.8-10.8 RED BLOOD CELL COUNT 5.02 Million/uL 3.80-5.10 HEMOGLOBIN 15.5 g/dL 11.7-15.5 HEMATOCRIT 44.6 % 35.0-45.0 MCV 88.8 fL 80.0-100.0 MCH 30.9 pg 27.0-33.0 MCHC 34.8 g/dL 32.0-36.0 RDW 12.4 % 11.0-15.0 PLATELET COUNT 349 Thousand/uL 140-400 MPV 9.6 fL 7.5-12.5 ABSOLUTE NEUTROPHILS 6142 cells/uL 1280-8855 ABSOLUTE LYMPHOCYTES 1989 cells/uL 850-3900 ABSOLUTE MONOCYTES 590 cells/uL 200-950 ABSOLUTE EOSINOPHILS 53 cells/uL 15-500 ABSOLUTE BASOPHILS 26 cells/uL 0-200 NEUTROPHILS 69.8 % NRG LYMPHOCYTES 22.6 % NRG MONOCYTES 6.7 % NRG EOSINOPHILS 0.6 % NRG BASOPHILS 0.3 % NRG TSH - 08/08/18 14:29 TSH 0.47 mIU/L NRG Encounters ACCT No. Visit Date/Time Discharge Status Pt. Type Provider Facility Loc./Unit Complaint [id number] 11/06/2013 09:48:52 11/06/2013 23:59:59 CLS Outpatient Joann Mohamud [facility] 02/24/2015 05:02:15 ACT Document Registration [id number] 09/10/2017 09:44:19 Document Registration [id number] 06/25/2017 08:27:00 06/25/2017 09:39:00 DIS Emergency ALEE ALMONTE MD [facility] ER CLEANING CHEMICALS IN HER EYES [id number] 07/11/2015 06:11:00 07/12/2015 17:31:00 DIS Inpatient NAYA LYMAN MD [facility] LDRP NORMAL DELIVERY [id number] 02/23/2015 12:13:00 02/23/2015 23:59:59 CLS Outpatient NAYA LYMAN MD [facility] RAD SCREENING ANATOMY [id number] 12/06/2014 11:05:00 12/06/2014 23:59:59 CLS Outpatient KEHINDE ANDERSON APRN [facility] RAD DATING [id number] 11/19/2014 18:51:00 11/19/2014 21:09:00 DIS Emergency KOLBY WAYNE AUXILIARY PLANT OPERATOR [facility] ER 6WKS , BLEEDING [id number] 08/11/2012 16:01:00 Document Registration [id number] 08/01/2012 15:48:00 Document Registration [id number] 06/12/2012 12:10:00 Document Registration [id number] 04/22/2012 21:22:00 Document Registration [id number] 09/12/2018 06:06:00 Document Registration [id number] 09/11/2017 19:05:00 Document Registration [id number] 08/10/2016 10:05:00 Document Registration [id number] 02/25/2015 11:54:00 02/25/2015 23:59:59 CLS Outpatient NAYA LYMAN MD [id number] 02/09/2015 10:23:00 02/09/2015 23:59:59 CLS Outpatient NAYA LYMAN MD [id number] 01/12/2015 10:19:00 01/12/2015 23:59:59 CLS Outpatient MONICA KEHINDE MYERS [id number] 11/29/2014 11:20:00 11/29/2014 23:59:59 CLS Outpatient MONICA KEHINDE MYERS [id number] 11/17/2014 10:18:00 11/17/2014 23:59:59 CLS Outpatient ZAYDA RANDALL DO [id number] 04/15/2014 13:59:00 04/15/2014 23:59:59 CLS Outpatient ZAYDA RANDALL DO [id number] 01/26/2014 16:59:00 01/26/2014 23:59:59 CLS Outpatient MONICA KEHINDE MYERS [id number] 09/30/2018 08:20:00 09/30/2018 23:59:59 CLS Outpatient [facility] [id number] 08/08/2018 13:40:00 Document Registration
[2018-10-08] MEDS ORDERED: ONDA4TAB11 PO (10:45)
[2018-10-08 10:47] VITALS: BP 98/72
== END 2018-10-08 10:47 | disposition home or self-care (01) ==
LOC: EDUNIT# 09:27 → ER 09:28
DX: G43.909 Migraine, unspecified, not intractable, without status migrainosus (principal); Z88.5 Allergy status to narcotic agent; Z87.891 Personal history of nicotine dependence; Z90.89 Acquired absence of other organs

== ENCOUNTER 2022-06-11 09:43 | Emergency (ER) | payer BC, MEDICAID ==
[~2022-06-11] VITALS: Ht 165.1 cm; Wt 61.2 kg
[~2022-06-11 09:43] MED LIST changes: +ONDA4TAB11 PO
--- NOTE | 2022-06-11 10:23 | ED Headache ---
General Chief Complaint: Head/Cervical Problems Stated Complaint: HEADACHE Source: patient Exam Limitations: no limitations History of Present Illness Date Seen by Provider: Jun 11, 2022 Time Seen by Provider: 10:18 Initial Comments Patient is a 26-year-old female who presents to the emergency department today with a chief complaint of severe headache onset at about 930 this morning while she was on her way to work. Patient states that she has headaches exactly like this about every 3 or 4 years. She was quite nauseous and did vomit with a headache. She has not taken anything for the headache. Movement and walking around made her headache much worse. She denies any recent fevers, chills, sinus congestion. No chest pain, cough, shortness of breath, diarrhea or urinary complaints. All other review of systems reviewed and negative except as stated. Timing/Duration: 1-3 hours Severity/Quality: severe, throbbing Location: occipital Prior Headaches/Recent Trauma: occasional headaches (every 3-4 years) Modifying Factors: worse with movement Associated Symptoms: other (n/v) Allergies and Home Medications Allergies Coded Allergies: morphine (Verified Allergy, Mild, SOA, 04/22/12) Patient Home Medication List Home Medication List Reviewed: Yes Ondansetron (Ondansetron Odt) 4 Mg Tab.rapdis, 4 MG PO Q6H PRN for NAUSEA/VOMITING Prescribed by: DEYA MERCADO on 10/08/18 1045 Varenicline Tartrate (Chantix) 1 Mg Tablet, 1 MG PO DAILY, (Reported) Entered as Reported by: DESTIN BOWENS on 06/25/17 0854 Review of Systems Review of Systems Constitutional: see HPI Eyes: No Symptoms Reported Ears, Nose, Mouth, Throat: no symptoms reported Respiratory: no symptoms reported Gastrointestinal: nausea, vomiting Genitourinary: no symptoms reported Musculoskeletal: no symptoms reported Skin: no symptoms reported Psychiatric/Neurological: Headache All Other Systems Reviewed Negative Unless Noted: Yes Past Lxilytn-Sonzev-Hpjuyb Hx Patient Social History Tobacco Use?: Yes Tobacco type used: Cigarettes Substance use?: Yes Substance type: Marijuana Alcohol Use?: Yes Alcohol Frequency: Once in a while Pt feels they are or have been: Unable to obtain Immunizations Up To Date Tetanus Booster (TDap): Less than 5yrs PED Vaccines UTD: Yes Influenza Vaccine Up-to-Date: No; Not Current Seasonal Allergies Seasonal Allergies: Yes Past Medical History Surgeries: Yes (wisdom teeth ) Tonsillectomy Respiratory: No Cardiac: No Neurological: No Reproductive Disorders: No Sexually Transmitted Disease: No HIV/AIDS: No Genitourinary: No Gastrointestinal: No Musculoskeletal: No Endocrine: No Cancer: No Psychosocial: No Integumentary: No Blood Disorders: No Adverse Reaction/Blood Tranf: No Family Medical History Chrons Diabetes mellitus 19 FATHER FH: Crohn's disease G8 BROTHER Hypertension 19 FATHER Psychosocial problem 19 FATHER (schizophrenia ) 19 MOTHER (manic depressive ) No Pertinent Family Hx Physical Exam Vital Signs Vital Signs - First Documented 06/11/22 09:50 Temp 35.8 Pulse 99 Resp 18 B/P (MAP) 119/68 (85) Pulse Ox 99 O2 Delivery Room Air Capillary Refill : Height, Weight, BMI Height: 5'5.00" Weight: 120lbs. oz. 54.114993zh; 25.62 BMI Method:Stated General Appearance: WD/WN, mild distress HEENT: PERRL/EOMI, TMs normal, pharynx normal Neck: full range of motion, supple Cardiovascular: regular rate, rhythm Respiratory: lungs clear, normal breath sounds, no respiratory distress, no ac cessory muscle use Gastrointestinal: non tender, soft Extremities: normal range of motion, normal inspection Psychiatric: alert, oriented x 3, other (Tearful and anxious) Crainal Nerves: normal hearing, normal speech, PERRL Motor/Sensory: no motor deficit, no sensory deficit Skin: normal color, warm/dry Progress/Results/Core Measures Results/Orders My Orders Orders - KIRIT MOORE MD Ed Iv/Invasive Line Start (06/11/22 10:27) Ketorolac Injection (Toradol Injection) (06/11/22 10:30) Metoclopramide Injection (Reglan Injecti (06/11/22 10:30) Diphenhydramine Injection (Benadryl Inje (06/11/22 10:30) Ns Iv 500 Ml (Sodium Chloride 0.9%) (06/11/22 10:30) Medications Given in ED Current Medications Medications Dose Ordered Sig/Sunil Route Start Time Stop Time Status Last Admin Dose Admin Diphenhydramine HCl 25 mg ONCE ONCE IVP 06/11/22 10:30 06/11/22 10:31 DC 06/11/22 11:01 25 MG Ketorolac Tromethamine 15 mg ONCE ONCE IVP 06/11/22 10:30 06/11/22 10:31 DC 06/11/22 11:01 15 MG Metoclopramide HCl 10 mg ONCE ONCE IVP 06/11/22 10:30 06/11/22 10:31 DC 06/11/22 11:01 10 MG Vital Signs/I&O 06/11/22 09:50 Temp 35.8 Pulse 99 Resp 18 B/P (MAP) 119/68 (85) Pulse Ox 99 O2 Delivery Room Air Progress Progress Note : Time: 11:35 Progress Note Patient feels much better after medications and IV fluids. I have encouraged her to follow-up with [facility]. Return precautions provided. She verbalized understanding. All questions are sought and answered. Departure Impression Primary Impression: Headache Qualified Codes: R51.9 - Headache, unspecified Disposition: 01 HOME, SELF-CARE Condition: Improved Departure-Patient Inst. Decision time for Depature: 11:36 Referrals: [facility] (PCP/Family) Primary Care Physician Patient Instructions: Headache, Adult Add. Discharge Instructions: Drink plenty of fluids to stay well-hydrated. You can take later on today, 2 Aleve/naproxen with food to help prevent rebound headache. Follow-up with [facility] as needed. Return to the emergency department for any new, concerning or emergent complaints. Work/School Note: Work Release Form Date Seen in the Emergency Department: Jun 11, 2022 Return to Work: Jun 12, 2022 Copy Copies To 1: ZAYDA RANDALL KATHRYN M MD Jun 11, 2022 10:23
[2022-06-11] MEDS ORDERED: diphenhydrAMINE 50 MG/ML INJ (BENADRYL) IVP ONE (10:30)
[2022-06-11] MEDS ORDERED: METOCLOPRAMIDE INJ 10 MG/2 ML (REGLAN) IVP ONE (10:30)
[2022-06-11] MEDS ORDERED: KETOROLAC 30 MG/ML VIAL IVP ONE (10:30)
[2022-06-11] MEDS ORDERED: NS IV 500 ML 500 ML IV SCH (10:30)
[2022-06-11 11:53] VITALS: BP 94/61
== END 2022-06-11 11:53 | disposition home or self-care (01) ==
LOC: EDUNIT# 09:43 → ER 09:45
DX: R51.9 Headache, unspecified (principal); Z88.5 Allergy status to narcotic agent